=== PATIENT | male | born 1985 | race Caucasian/White ===

== ENCOUNTER 2019-08-29 09:22 | Day surgery (SDC) | payer BC ==
[2019-08-28 09:03] VITALS: BMI 29.1
[2019-08-29] MEDS ORDERED: Acetaminophen 500 MG TAB ONE (10:15)
[2019-08-29] MEDS ORDERED: Ketorolac Tromethamine 30 MG/ML VIAL ONE (10:15)
[2019-08-29 10:40] LABS: #Basophils 0.1 thou/uL (0.0-0.2); #Eosinphils 0.2 thou/uL (0.0-0.7); #Lymphocytes 1.7 thou/uL (1.20-3.40); #Monocytes 0.4 thou/uL (0.11-0.59); #Neutrophils 3.9 thou/uL (1.40-6.50); %Basophils 0.9 % (0.0-1.0); %Eosinophils 2.6 % (0.0-10.0); %Lymphocytes 26.7 % (21.0-51.0); %Neutrophils 62.7 % (42.0-75.0); Hemoglobin 15.5 g/dL (14.0-18.0); Mean Corpuscular HGB CONC 33.1 g/dL (32.0-36.0); Mean Corpuscular Hemoglobin 31.1 pg (27.0-31.0); Mean Corpuscular Volume 93.8 fL (78.0-98.0); Mean Platelet Volume 8.3 fL (7.4-10.4); Platelet Count 226 thou/uL (130-400); RBC Distribution Width 12.3 % (11.5-14.5); Red Blood Cell (RBC) Count 4.99 mill/uL (4.70-6.10); White Blood Cell (WBC) Count 6.2 thou/uL (4.8-10.8)
[2019-08-29 10:58] LABS: Anion Gap 9 mmol/L (10-20); BUN (Urea Nitrogen) 12 mg/dL (8.9-20.6); Calc. Creatinine Clearance 186 mL/min (70-130); Calcium 9.2 mg/dL (7.8-10.44); Carbon Dioxide 26 mmol/L (22-29); Chloride 110 mmol/L (98-107); Estimated GFR-MDRD Greater than 90; Glucose 83 mg/dL (70-105); Potassium 4.3 mmol/L (3.5-5.1); Sodium 141 mmol/L (136-145)
[2019-08-29] MEDS ORDERED: Bupivacaine 0.25% HCL 30 ML VIAL ONE (12:24)
[2019-08-29] MEDS ORDERED: Lidocaine 1% w/Epinephrine 1:100K 20 ML VIAL ONE (12:24)
[2019-08-29] MEDS ORDERED: Fentanyl 100 MCG/2 ML VIAL ONE (12:29)
[2019-08-29] MEDS ORDERED: Midazolam HCl 2 mg/2 ml Vial ONE (12:29)
[2019-08-29] MEDS ORDERED: HYDROcodone/Acetaminophen 5/325 mg Tablet ONE (14:18)
[2019-08-29] MEDS ORDERED: Ondansetron PF 4 MG/2 ML Vial ONE (14:53)
[2019-08-29] MEDS ORDERED: PROPOFOL 200 MG/20 ML VIAL ONE (14:53)
[2019-08-29] MEDS ORDERED: Dexamethasone 20 MG/5 ML VIAL ONE (14:53)
--- NOTE | 2019-08-30 14:58 | OP ---
DATE OF PROCEDURE: 08/29/2019 PREOPERATIVE DIAGNOSIS: Umbilical hernia. POSTOPERATIVE DIAGNOSIS: Umbilical hernia. PROCEDURE PERFORMED: Open repair of umbilical hernia with Ventralex mesh patch. ANESTHESIA: General endotracheal. INDICATIONS: Patient is a 34-year-old white male. He presents with an easily visible and palpable umbilical hernia, is taken to the operative room at this time for repair. DESCRIPTION OF OPERATION: Informed consent was obtained. Patient was taken to the operating room, where general anesthesia obtained, patient in supine position. Abdomen was prepped with ChloraPrep, draped in a sterile fashion. Local anesthetic was infiltrated with 0.25% Marcaine with epinephrine. A curvilinear infraumbilical incision was created and dissection was carried through skin and subcutaneous tissue. The hernia sac was encountered immediately under the skin. Careful dissection was carried out around the inferior aspect of the hernia sac down to the fascia. The overlying skin was then dissected off with the hernia as it was encircled circumferentially. The umbilicus was then dissected off the fascia and reflected superiorly. The hernia was dissected circumferentially at its base and I was able to invert the contents into the abdominal cavity. Blunt dissection was carried out in the preperitoneal space to carefully mobilize the underside of the fascia. A 4.3 cm Ventralex mesh patch was obtained and passed in the preperitoneal space. It was pulled, snugged against the posterior fascia. The tails of the mesh patch were secured to fascia superiorly and inferiorly with simple interrupted sutures of 0 Prolene. The lateral aspects of the defect were closed with simple interrupted sutures of 0 Prolene, obtaining small bites of the anterior leaflet of the mesh patch. The umbilicus was then secured down to the fascia with 2 interrupted sutures of 3-0 Vicryl. The wound was then closed in layers with 3-0 and 4-0 Monocryl suture. Dermabond was placed externally. A compression dressing was then placed fashioned out of the cotton balls with a clear adhesive dressing. The air was aspirated out of the cotton balls to effect the compression dressing. There were no complications. Patient tolerated the procedure well and was taken to recovery room in stable condition. Job ID: [id number]
== END 2019-08-29 14:40 | disposition home or self-care (01) ==
LOC: SDC 09:22
PROVIDERS: ATTEND Specialist
PROC: 0WUF0JZ Supplement Abdominal Wall with Synthetic Substitute, Open Approach (ICD-10-PCS; principal; 2019-08-29)
DX: K42.9 Umbilical hernia without obstruction or gangrene (principal); F17.220 Nicotine dependence, chewing tobacco, uncomplicated; Z98.890 Other specified postprocedural states
CPT/HCPCS: 80048; 85025; J0690; J1100; J1885; J2250; J2405; J2704; J3010; S0020